=== PATIENT | male | born 1935 | race Caucasian/White ===

== ENCOUNTER → 2024-07-19 | Outpatient (CLI) | payer MEDICARE ==
[~2024-07-19] MED LIST: GADOTERATE MEGLUMINE 10 MMOL/20 ML VIAL IV ONE
== END | disposition home or self-care (01) ==
LOC: LAB 12:35 → MRI 13:00
PROVIDERS: ATTEND Otolaryngology
DX: R20.0 Anesthesia of skin (principal)